=== PATIENT | female | born 1925 | race Caucasian/White ===

== ENCOUNTER 2016-12-01 09:06 | Emergency (ER) | payer OTHER ==
--- NOTE | 2016-12-01 09:24 | EDPHY ---
H & P Stated Complaint: cough with incfreasing o2 use, and generalized weak today, vomiting this am Time Seen by Provider: 12/01/16 09:22 HPI/ROS: HPI: This is a 89-year-old female who presents with Chief Complaint: Cough, weakness Location: Chest, body Quality: Cough, weakness Duration: Several days Signs and Symptoms: No fever, no chills, + generalized weakness, + fatigue, + right lower quadrant abdominal pain, + nausea with 1 episode of vomiting, + lower extremity swelling, no dysuria Timing: Daily, worsening Severity: Moderate Context: Patient presents via EMS from a alf with several complaints including nonproductive cough, generalized weakness, right lower quadrant abdominal pain, and increased work of breathing. She was found to be 78% on room air upon EMS arrival. She is supposed to be on home home oxygen at 2 L nasal cannula at night for chronic nocturnal hypoxemia. She has not eaten or drank anything today. Denies difficulty swallowing. Modifying Factors: Comment: ROS: Somewhat limited to mild cognitive deficits secondary to dementia Constitutional: No fever, no chills, no weight loss Eyes: No blurred vision Respiratory: No shortness of breath, no cough Cardiovascular: No chest pain Gastrointestinal: No nausea, no vomiting no diarrhea Genitourinary: No dysuria Extremities: No myalgias Neurologic: No weakness, no numbness Skin: No rashes Hematologic: No bruising, no bleeding SOCIAL HISTORY: intermediate resident. Denies history of appendectomy. Source: Patient, RN notes reviewed, intermediate records Exam Limitations: Clinical condition (mild dementia) - Personal History Current Tetanus/Diphtheria Vaccine: Yes Current Tetanus Diphtheria and Acellular Pertussis (TDAP): Yes Tetanus Vaccine Date: < 10 years - Medical/Surgical History Hx Asthma: No Hx Chronic Respiratory Disease: No Hx Diabetes: No Hx Cardiac Disease: Yes Hx Renal Disease: No Hx Cirrhosis: No Hx Alcoholism: No Hx HIV/AIDS: No Hx Splenectomy or Spleen Trauma: No Other PMH: MACULAR DEGENERATION/MITRAL VALVE PROLAPSE/BACK SURGERY/SEIZURES, hypothyroid, restless leg syn., kidney stones, GERD, - Social History Smoking Status: Never smoked - Physical Exam Exam: CONSTITUTIONAL: Elderly white female who appears ill but nontoxic in appearance , awake and alert, no obvious distress HEENT: Atraumatic and normocephalic, PERRL, EOMI. Pale conjunctiva. Nares patent no rhinorrhea. Tympanic membranes clear. Oropharynx clear, no exudate and moist pink mucosa. Airway patent. No lymphadenopathy. No meningismus. Cardiovascular: Normal S1/S2, regular rate, regular rhythm, with murmur noted PULMONARY/CHEST: Symmetrical and nontender. Clear to auscultation bilaterally. Good air movement. No accessory muscle usage. ABDOMEN: Soft, nondistended, nontender, no rebound, no guarding, no peritoneal signs, no masses or organomegaly. No CVAT. EXTREMITIES: 2/2 pulses, no deformities, no clubbing, no cyanosis. Trace bilateral pedal edema mild pitting. NEUROLOGICAL: no focal neuro deficits. GCS 15. Alert to self and place. Mild short-term memory deficits noted. Follows one-step commands. Moves all 4 extremities without difficulties. SKIN: Warm and dry, pallor, no erythema. no rash. Good capillary refill. Constitutional: Initial Vital Signs Temperature (C) 36.8 C 12/01/16 09:12 Heart Rate 77 12/01/16 09:12 Respiratory Rate 16 12/01/16 09:12 Blood Pressure 134/81 H 12/01/16 09:12 O2 Sat (%) 99 12/01/16 09:12 O2 Delivery Mode Room Air Allergies/Adverse Reactions: diazepam [From Valium] Allergy (Verified 10/10/15 11:14) penicillin Allergy (Verified 10/10/15 11:14) Home Medications: Medication Instructions Recorded Ergocalciferol [Vitamin D2 (*)] 50,000 unit PO Q14D 10/16/14 LEVETIRACETAM [Keppra 750 mg] 750 mg PO DAILY 10/16/14 Levothyroxine [Synthroid 75 mcg 75 mcg PO DAILY06 10/16/14 (*)] Menthol/Camphor [Sarna] 1 liliane TP HS PRN 10/16/14 PE/Shark Liver/Gly/Pet,Wh [address] PRN PRN 10/16/14 [Preparation H Cream (*)] Tears/Hypromellose [Natural 1 drop EACHEYE DAILY PRN 10/16/14 Balance] buPROPion SR [Wellbutrin 100mg SR 100 mg PO BID 10/16/14 (*)] rOPINIRole HCL [Requip 1mg (*)] 1 mg PO HS 10/16/14 Acetaminophen [Tylenol 325mg (*)] 650 mg PO Q4 PRN 01/18/15 Aspirin EC [Aspirin EC 81 mg (*)] 81 mg PO DAILY 01/18/15 Calcium Carbonate [Tums 500MG (*)] 500 mg PO Q4 PRN 01/18/15 Famotidine [Pepcid 20 MG (*)] 20 mg PO DAILY PRN 01/18/15 Propylene Glycol/Peg 400/Pf 1 each EACHEYE QID PRN 01/18/15 [Systane 0.3-0.4% Eye Drops] levETIRAcetam [Keppra 500 mg (*)] 500 mg PO HS 01/18/15 Ipratropium/Albuterol [Duoneb (*)] 3 ml IH QID #0 deyvial 02/20/16 Oseltamivir Phosphate [Tamiflu 30 mg PO BIDMEAL #0 ml 02/20/16 Oral Suspension] guaiFENesin [Mucinex 600 MG (*)] 1,200 mg PO BID #0 tab.er 02/20/16 guaiFENesin/CODEINE PHOS 10 ml PO Q6HRS PRN #0 udcup 02/20/16 [Robitussin AC] levOFLOXACIN [levAQUIN (*)] 750 mg PO Q48H #0 tab 02/20/16 Doxycycline Hyclate 100 mg PO BID #14 tab 12/01/16 predniSONE [predniSONE TAPER] 10 mg PO DAILY 6 Days ea 12/01/16 Medical Decision Making - Diagnostics EKG Interpretation: 12 lead EKG: Indication: Weakness Rhythm: Normal sinus rhythm, rate 79 beats per minute Notus: Normal Intervals: Normal QRS: Normal ST segments: Nonspecific changes INTERPRETATION: Normal EKG The 12 lead EKG was interpreted by myself. No EKG to compare. Imaging Results: Imaging Impressions Abdomen CT 12/01/16 09:22 Impression: 1. Diverticulosis without evidence for diverticulitis. No CT findings for appendicitis. 2. Nonobstructive right nephrolithiasis. Simple-appearing exophytic renal cortical cyst right kidney. 3. Other chronic findings as above. Results called and discussed with Darlene Dhillon PA-C, at 1134 hours 01 December 2016. Chest/Thorax CTA 12/01/16 09:22 Impression: 1. No evidence of thrombopulmonary embolic disease. 2. Asymmetric apical pleural scarring bilaterally, right greater than left. Probable scarring anteriorly in the left upper lobe and inferiorly in the lingula. Consider follow-up CT in 6-12 months. 3. Diskoid atelectasis or scarring both lung bases. No evidence for airspace consolidation to suggest pneumonia. Results called and discussed with Darlene Dhillon PA-C, at 1132 hours 01 December 2016. ED Course/Re-evaluation: Will initiate sepsis workup with pulmonary, abdominal or urinary source. Also evaluate for pulmonary embolism. Blood culture, lactic acid, labs, urinalysis an in out catheterization, IV fluids, CT abdomen and pelvis, CTA chest ordered D-dimer 1.41 noted No leukocytosis/acute kidney injury/electrolyte imbalance/anemia/elevated LFTs/ congestive heart failure/acute coronary syndrome UA shows trace ketones but no signs of infection. Given 1 L normal saline. 1140: Called by radiologist and CTA scan does not show pulmonary embolism, does show atelectasis consistent with chronic scarring but no opacity consistent with pneumonia. CT abdomen and pelvis scan does not show appendicitis/colitis/pancreatitis/gallbladder disease/obstruction. + diverticulosis without diverticulitis. Respiratory pathogen panel is consistent with rhinovirus/enterovirus; no influenza. Will treat patient for bacterial bronchitis as an outpatient; no wheezing; on oxygen at alf. given prednisone 60 mg and doxycycline Differential Diagnosis: Shortness of breath including but not limited to pulmonary infectious process, COPD, asthma, pulmonary embolus and congestive heart failure. Abdominal pain including but not limited to appendicitis, cholecystitis, gastritis and urinary tract infection. - Data Points Laboratory Results: Laboratory Results 12/01/16 09:25 12/01/16 09:25 12/01/16 12/01/16 12/01/16 09:55 09:35 09:25 WBC RBC Hgb Hct MCV MCH MCHC RDW Plt Count MPV Neut % (Auto) Lymph % (Auto) [place] % (Auto) Eos % (Auto) Baso % (Auto) Nucleat RBC Rel Count Absolute Neuts (auto) Absolute Lymphs (auto) Absolute Monos (auto) Absolute Eos (auto) Absolute Basos (auto) Absolute Nucleated RBC Immature Gran % Immature Gran # PT INR APTT D-Dimer VBG Lactic Acid 1.0 mmol/L mmol/L (0.7-2.1) Sodium 141 mEq/L mEq/L (134-144) Potassium 3.5 mEq/L mEq/L (3.5-5.2) Chloride 101 mEq/L mEq/L (97-110) Carbon Dioxide 28 mEq/l mEq/l (22-31) Anion Gap 12 mEq/L mEq/L (8-16) BUN 13 mg/dL mg/dL (7-23) Creatinine 1.0 mg/dL mg/dL (0.6-1.0) Estimated GFR 52 Glucose 91 mg/dL mg/dL (70-100) Calcium 8.9 mg/dL mg/dL (8.5-10.4) Total Bilirubin 0.9 mg/dL mg/dL (0.1-1.4) Troponin I < 0.012 ng/mL ng/mL (0.000-0.034) NT-Pro-B Natriuret Pep 159 pg/mL pg/mL (0-450) Urine Color YELLOW Urine Appearance CLEAR Urine pH 5.0 (5.0-7.5) Ur Specific [place] 1.015 (1.002-1.030) Urine Protein NEGATIVE (NEGATIVE) Urine Ketones TRACE H (NEGATIVE) Urine Blood NEGATIVE (NEGATIVE) Urine Nitrate NEGATIVE (NEGATIVE) Urine Bilirubin NEGATIVE (NEGATIVE) Urine Urobilinogen NEGATIVE EU EU (0.2-1.0) Ur Leukocyte Esterase NEGATIVE (NEGATIVE) Urine Glucose NEGATIVE (NEGATIVE) 12/01/16 12/01/16 09:25 09:25 WBC 5.74 10^3/uL 10^3/uL (3.80-9.50) RBC 4.21 10^6/uL 10^6/uL (4.18-5.33) Hgb 12.8 g/dL g/dL (12.6-16.3) Hct 39.9 % % (38.0-47.0) MCV 94.8 fL fL (81.5-99.8) MCH 30.4 pg pg (27.9-34.1) MCHC 32.1 g/dL L g/dL (32.4-36.7) RDW 14.0 % % (11.5-15.2) Plt Count 246 10^3/uL 10^3/uL (150-400) MPV 10.2 fL fL (8.7-11.7) Neut % (Auto) 73.6 % % (39.3-74.2) Lymph % (Auto) 13.9 % L % (15.0-45.0) [place] % (Auto) 11.3 % % (4.5-13.0) Eos % (Auto) 0.2 % L % (0.6-7.6) Baso % (Auto) 0.7 % % (0.3-1.7) Nucleat RBC Rel Count 0.0 % % (0.0-0.2) Absolute Neuts (auto) 4.22 10^3/uL 10^3/uL (1.70-6.50) Absolute Lymphs (auto) 0.80 10^3/uL L 10^3/uL (1.00-3.00) Absolute Monos (auto) 0.65 10^3/uL 10^3/uL (0.30-0.80) Absolute Eos (auto) 0.01 10^3/uL L 10^3/uL (0.03-0.40) Absolute Basos (auto) 0.04 10^3/uL 10^3/uL (0.02-0.10) Absolute Nucleated RBC 0.00 10^3/uL 10^3/uL (0-0.01) Immature Gran % 0.3 % % (0.0-1.1) Immature Gran # 0.02 10^3/uL 10^3/uL (0.00-0.10) PT 12.8 SEC SEC (12.0-15.0) INR 0.97 (0.83-1.16) APTT 28.4 SEC SEC (23.0-38.0) D-Dimer 1.41 ug/mLFEU H ug/mLFEU (0.00-0.50) VBG Lactic Acid Sodium Potassium Chloride Carbon Dioxide Anion Gap BUN Creatinine Estimated GFR Glucose Calcium Total Bilirubin Troponin I NT-Pro-B Natriuret Pep Urine Color Urine Appearance Urine pH Ur Specific [place] Urine Protein Urine Ketones Urine Blood Urine Nitrate Urine Bilirubin Urine Urobilinogen Ur Leukocyte Esterase Urine Glucose Microbiology Results: MICROBIOLOGY 12/01/16 09:47 Nasal, Sinus - Swab Respiratory Panel (PCR) - Final Human Rhinovirus/Enterovirus Medications Given: Discontinued Medications Sodium Chloride (Ns) 1,000 mls @ 0 mls/hr IV EDNOW ONE; Wide Open PRN Reason: Protocol Stop: 12/01/16 09:34 Last Admin: 12/01/16 10:03 Dose: 1,000 mls Departure - Departure Disposition: Home, Routine, Self-Care Clinical Impression: Acute bacterial bronchitis Condition: Good Instructions: Acute Bronchitis (ED) Additional Instructions: Follow-up appointment with primary care provider in 2-3 days for close monitoring. Take all medications as prescribed. Wear supplemental oxygen as needed to maintain O2 sats greater than 92%. Referrals: [facility],. [Clinic] - As per Instructions Prescriptions: Doxycycline Hyclate 100 mg PO BID #14 tab predniSONE [predniSONE TAPER] 10 mg PO DAILY 6 Days ea
--- NOTE | 2016-12-01 09:27 | CPEKG ---
Heart Rate: 79 RR Interval: 759 P-R Interval: 184 QRSD Interval: 88 QT Interval: 380 QTC Interval: 436 P [place]: 54 QRS [place]: -16 T Wave [place]: 17 EKG Severity - OTHERWISE NORMAL ECG - EKG Impression: SINUS RHYTHM EKG Impression: BORDERLINE LEFT AXIS DEVIATION Electronically Signed By: Celestino Franco 02-Dec-2016 10:36:14
[2016-12-01 09:55] LABS: % IMMATURE GRANULYOCYTES 0.3 % (0.0-1.1); ABSOLUTE IMMATURE GRANULOCYTES 0.02 10^3/uL (0.00-0.10); ADD DIFF? NO; ADD MORPH? NO; ADD SCAN? NO; ATYPICAL LYMPHOCYTE FLAG 0 (0-99); FRAGMENT RBC FLAG 10 (0-99); HEMATOCRIT 39.9 % (38.0-47.0); HEMOGLOBIN 12.8 g/dL (12.6-16.3); LEFT SHIFT FLG 10 (0-99); LIPEMIA HEMOLYSIS FLAG 80 (0-99); MEAN CELL HEMOGLOBIN 30.4 pg (27.9-34.1); MEAN CELL HEMOGLOBIN CONCENTR. 32.1 g/dL (32.4-36.7); MEAN CELL VOLUME 94.8 fL (81.5-99.8); MEAN PLATELET VOLUME 10.2 fL (8.7-11.7); PLATELET CLUMPS FLAG 10 (0-99); PLATELET COUNT 246 10^3/uL (150-400); RED BLOOD CELL COUNT 4.21 10^6/uL (4.18-5.33)
[2016-12-01] MEDS: NS 1,000 ML IV ONE (10:03)
[2016-12-01 10:04] LABS: ANION GAP 12 mEq/L (8-16); BILIRUBIN,TOTAL 0.9 mg/dL (0.1-1.4); CALCIUM 8.9 mg/dL (8.5-10.4); CARBON DIOXIDE 28 mEq/l (22-31); CHLORIDE 101 mEq/L (97-110); GLOMERULAR FILTRATION RATE 52; GLUCOSE 91 mg/dL (70-100); POTASSIUM 3.5 mEq/L (3.5-5.2); SODIUM 141 mEq/L (134-144)
[2016-12-01 10:06] LABS: COLOR YELLOW; LEUKOCYTE ESTERASE,URINE NEGATIVE (NEGATIVE); NITRITE,URINE NEGATIVE (NEGATIVE)
[2016-12-01 10:09] LABS: INR 0.97 (0.83-1.16); PROTIME(PATIENT) 12.8 SEC (12.0-15.0)
[2016-12-01 10:10] LABS: APTT 28.4 SEC (23.0-38.0)
[2016-12-01] MEDS ORDERED: IOPAMIDOL (ISOVUE 370) 100 ML BTL IV ONE (10:14)
[2016-12-01 10:15] LABS: TROPONIN I < 0.012 ng/mL (0.000-0.034)
[2016-12-01 11:47] VITALS: RESP 18; TEMP 98.4
[2016-12-01 12:43] VITALS: BP 132/80; PULSE 76; O2SAT 99
[2016-12-01] MEDS: predniSONE 20 MG TAB PO ONE (12:45)
[2016-12-01] MEDS: DOXYCYCLINE HYCLATE 100 MG CAP/TAB PO ONE (12:45)
--- NOTE | 2016-12-01 15:09 | ASMTCMCOM ---
CM Note CM Note Notes: Requested to assist with getting patient back to her assisted living apartment at [facility]. Spoke with Florinda RN at [facility] ([phone]); provided an update and patient's discharge plan. [facility] is able to send transportation to pick patient up around 1500. Spoke with patient's daughter Rachel (h:[phone]) who lives in [place] and she is unable to come and pick patient up until later. Rachel spoke with patient and was also updated on patient's visit summary and discharge plans. CM available for further assistance. Date Signed: 12/01/2016 03:08 PM Electronically Signed By:Tamica Moseley RN
== END 2016-12-01 15:47 | disposition home or self-care (01) ==
LOC: EDUNIT#
DX: J20.8 Acute bronchitis due to other specified organisms (principal); E86.9 Volume depletion, unspecified; Z79.82 Long term (current) use of aspirin
CPT/HCPCS: 71275; 74177; 93005; 96360; 99285; Q9967